=== PATIENT | female | born 1935 | race Caucasian/White ===

== ENCOUNTER 2020-04-14 15:57 | Emergency (ER) | payer MEDICARE ==
[~2020-04-14] VITALS: Ht 165.1 cm; Wt 74.8 kg
[2020-04-14 15:57] VITALS: BP 168/74
--- NOTE | 2020-04-14 15:57 | NUR ---
ED Nurse Note: Pt MOHAN LANDERS from the street c/o S/P fall today x couple minutes ago. Per pt, she went out for a walk and had a trip and fall, and she landed on her face. Noted with multiple laceration on the forehead and nose. Denies LOC/ KO. Pt AAOX4, verbally responsive. No SOB, on room air.
--- NOTE | 2020-04-14 15:58 | NUR ---
ED Nurse Note: Pt is also c/o right knee pain.
--- NOTE | 2020-04-14 16:22 | NUR ---
ED Nurse Note: IV line established. blood specimen collected and sent to lab.
--- NOTE | 2020-04-14 16:35 | NUR ---
ED Nurse Note: Pt taken to CT via francesca by a irma.
--- NOTE | 2020-04-14 16:48 | NUR ---
ED Nurse Note: Pt returned from CT, not in any distress.
[2020-04-14 17:01] LABS: APPEARANCE,URINE CLEAR; BILIRUBIN, URINE NEGATIVE (NEGATIVE); COLOR,URINE PALE YELLOW; GLUCOSE, URINE (UA) NEGATIVE (NEGATIVE); KETONES,URINE NEGATIVE (NEGATIVE); LEUKOCYTE ESTERASE ,URINE 2+ (NEGATIVE); NITRITE,URINE NEGATIVE (NEGATIVE); PH,URINE 9 (4.5-8.0); PROTEIN,URINE NEGATIVE (NEGATIVE); UROBILINOGEN,URINE NORMAL MG/DL (0.0-1.0)
--- NOTE | 2020-04-14 17:13 | Diagnostic Imaging Report ---
EXAM: CT Head Without Intravenous Contrast CLINICAL HISTORY: TRAUMA TECHNIQUE: Axial computed tomography images of the head/brain without intravenous contrast. CTDI is 20.2 mGy and DLP is 386.7 mGy-cm. One or more of the following dose reduction techniques were used: automated exposure control, adjustment of the mA and/or kV according to patient size, use of iterative reconstruction technique. COMPARISON: No relevant prior studies available. FINDINGS: Brain: No acute intracranial hemorrhage or cortical ischemia. Chronic small vessel ischemic changes. Ventricles: Unremarkable. Bones/joints: Unremarkable. No acute fracture. Soft tissues: Unremarkable. Sinuses: Unremarkable as visualized. Mastoid air cells: Unremarkable as visualized. IMPRESSION: No acute intracranial hemorrhage or skull fracture.
[2020-04-14 17:14] LABS: BASOPHILS % (AUTO) 1.2 % (0.0-2.0); EOSINOPHILS % (AUTO) 1.2 % (0.0-3.0); HEMOGLOBIN 15.2 G/DL (12.0-16.0); LYMPHOCYTES % (AUTO) 32.5 % (20.0-45.0); MEAN CORPUSCULAR VOLUME 91 FL (80-99); MONOCYTES % (AUTO) 7.5 % (1.0-10.0); NEUTROPHILS % (AUTO) 57.6 % (45.0-75.0); PLATELET COUNT 206 K/UL (150-450); RED BLOOD COUNT 4.95 M/UL (4.20-5.40); RED CELL DISTRIBUTION WIDTH 12.3 % (11.6-14.8)
--- NOTE | 2020-04-14 17:14 | Diagnostic Imaging Report ---
EXAM: CT Maxillofacial Without Intravenous Contrast CLINICAL HISTORY: TRAUMA TECHNIQUE: Axial computed tomography images of the face without intravenous contrast. CTDI is 20.2 mGy and DLP is 386.7 mGy-cm. One or more of the following dose reduction techniques were used: automated exposure control, adjustment of the mA and/or kV according to patient size, use of iterative reconstruction technique. COMPARISON: No relevant prior studies available. FINDINGS: Bones/joints: No acute fracture. Soft tissues: Unremarkable. Orbits: Unremarkable. Sinuses: Unremarkable. IMPRESSION: No acute fracture.
--- NOTE | 2020-04-14 17:15 | Diagnostic Imaging Report ---
EXAM: CT Cervical Spine Without Intravenous Contrast CLINICAL HISTORY: TRAUMA TECHNIQUE: Axial computed tomography images of the cervical spine without intravenous contrast. CTDI is 20.2 mGy and DLP is 386.7 mGy-cm. One or more of the following dose reduction techniques were used: automated exposure control, adjustment of the mA and/or kV according to patient size, use of iterative reconstruction technique. COMPARISON: No relevant prior studies available. FINDINGS: Vertebrae: No acute fracture or subluxation. Discs/spinal canal/neural foramina: Multilevel degenerative changes. Soft tissues: Unremarkable. IMPRESSION: No acute fracture or subluxation.
[2020-04-14 17:25] LABS: ALANINE AMINOTRANSFERASE 21 U/L (12-78); ALBUMIN 3.6 G/DL (3.4-5.0); ALBUMIN/GLOBULIN RATIO 1.2 (1.0-2.7); ALKALINE PHOSPHATASE 73 U/L (46-116); ASPARTATE AMINO TRANSFERASE 17 U/L (15-37); BILIRUBIN,TOTAL 0.5 MG/DL (0.2-1.0); BLOOD UREA NITROGEN 20 mg/dL (7-18); CALCIUM 9.3 MG/DL (8.5-10.1); CARBON DIOXIDE 31 MMOL/L (21-32); CREATININE 1.1 MG/DL (0.55-1.30)
[2020-04-14 17:31] LABS: CHLORIDE 102 MMOL/L (98-107); POTASSIUM 3.8 MMOL/L (3.5-5.1); SODIUM 139 MMOL/L (136-145)
--- NOTE | 2020-04-14 18:50 | NUR ---
ED Nurse Note: Xray at bedside.
[2020-04-14] MEDS ORDERED: Tetanus/Diptheria/Pertussis IM ONE (19:45)
--- NOTE | 2020-04-14 19:58 | Emergency Room Report ---
History of Present Illness General Chief Complaint: Multiple Trauma/Fall Source: Patient Present Illness HPI Patient states she was out walking today when she tripped and fell. She states it surprised her and she fell and hit her face and her left knee on the ground. She denies being on any anticoagulation. She denies headache or neck pain. She denies nausea or vomiting. She denies blurry vision. She denies weakness. She denies tingling or numbness. She denies chest pain. She denies shortness of breath or abdominal pain. She has no other complaints. Allergies: Coded Allergies: No Known Allergies (Unverified , 04/14/20) COVID-19 Screening Contact w/high risk pt: No Experienced COVID-19 symptoms?: No COVID-19 Testing performed LANDSCAPING SPECIALIST: No Patient History Past Medical History: see triage record, DM, HTN, other - HLP Social History: Denies: smoking, alcohol use, drug use Reviewed Nursing Documentation: PMH: Agreed; PSxH: Agreed Review of Systems All Other Systems: negative except mentioned in HPI Physical Exam Vital Signs Date Time Temp Pulse Resp B/P (MAP) Pulse Ox O2 Delivery O2 Flow Rate FiO2 04/14/20 15:51 98.2 84 16 168/74 (105) 99 Room Air Sp02 EP Interpretation: reviewed, normal General Appearance: no apparent distress, alert, GCS 15, non-toxic Head: normocephalic, other - 2 x 1cm hairline lacerations on mid forehead. Abrasion with partial skin avulsion over bridge of nose. Eyes: bilateral eye normal inspection, bilateral eye PERRL ENT: hearing grossly normal, normal pharynx, no angioedema, normal voice Neck: normal inspection, full range of motion, supple/symm/no masses Respiratory: chest non-tender, lungs clear, normal breath sounds, no respiratory distress, no retraction, no accessory muscle use, speaking full sentences Cardiovascular #1: regular rate, rhythm, no edema Gastrointestinal: non tender, soft, non-distended, no guarding, no rebound Rectal: deferred Musculoskeletal: back normal, normal range of motion, gait/station normal, tender - +ecchymosis and TTP over anterior L. knee. FROM. No joint effusion. Joint stable. Neurologic: alert, motor strength/tone normal, oriented x3, sensory intact, responsive, speech normal Psychiatric: judgement/insight normal, memory normal, mood/affect normal, no suicidal/homicidal ideation Skin: other - See above in head exam Medical Decision Making Diagnostic Impression: Primary Impression: Closed head injury Additional Impressions: Face lacerations Knee contusion Fall ER Course Patient suffered a mechanical fall. Given her age, I did obtain a CT of the head, facial bones and C-spine. The patient is high risk for an occult injury in these regions. These were all negative for acute fracture or intracranial bleed. The patient also has a contusion on her left knee. X-ray of the knee showed no acute fracture. Patient's patellar tendon is intact and there is no joint effusion. Patient is able to ambulate without difficulty. Overall, the patient's evaluation was benign. The patient lives nearby and is able to take a taxi home tonight. No emergency medical condition was identified. The patient is given close return precautions and follow-up instructions. Laboratory Tests Test 04/14/20 16:22 04/14/20 16:32 White Blood Count 7.0 K/UL (4.8-10.8) Red Blood Count 4.95 M/UL (4.20-5.40) Hemoglobin 15.2 G/DL (12.0-16.0) Hematocrit 45.0 % (37.0-47.0) Mean Corpuscular Volume 91 FL (80-99) Mean Corpuscular Hemoglobin 30.6 PG (27.0-31.0) Mean Corpuscular Hemoglobin Concent 33.7 G/DL (32.0-36.0) Red Cell Distribution Width 12.3 % (11.6-14.8) Platelet Count 206 K/UL (150-450) Mean Platelet Volume 6.7 FL (6.5-10.1) Neutrophils (%) (Auto) 57.6 % (45.0-75.0) Lymphocytes (%) (Auto) 32.5 % (20.0-45.0) Monocytes (%) (Auto) 7.5 % (1.0-10.0) Eosinophils (%) (Auto) 1.2 % (0.0-3.0) Basophils (%) (Auto) 1.2 % (0.0-2.0) Prothrombin Time 10.9 SEC (9.30-11.50) Prothrombin Time INR 1.0 (0.9-1.1) Activated Partial Thromboplast Time 27 SEC (23-33) Sodium Level 139 MMOL/L (136-145) Potassium Level 3.8 MMOL/L (3.5-5.1) Chloride Level 102 MMOL/L (98-107) Carbon Dioxide Level 31 MMOL/L (21-32) Blood Urea Nitrogen 20 mg/dL (7-18) H Creatinine 1.1 MG/DL (0.55-1.30) Estimated Glomerular Filtration Rate 47.1 mL/min (>60) Glucose Level 116 MG/DL (74-106) H Calcium Level 9.3 MG/DL (8.5-10.1) Total Bilirubin 0.5 MG/DL (0.2-1.0) Aspartate Amino Transferase (AST) 17 U/L (15-37) Alanine Aminotransferase (ALT) 21 U/L (12-78) Alkaline Phosphatase 73 U/L (46-116) Total Protein 6.7 G/DL (6.4-8.2) Albumin 3.6 G/DL (3.4-5.0) Globulin 3.1 g/dL Albumin/Globulin Ratio 1.2 (1.0-2.7) Thyroid Stimulating Hormone (TSH) 2.685 uiU/mL (0.358-3.740) Free Thyroxine 0.92 NG/DL (0.76-1.46) Serum Alcohol < 3 mg/dL Urine Color Pale yellow Urine Appearance Clear Urine pH 9 (4.5-8.0) Urine Specific [place] 1.015 (1.005-1.035) Urine Protein Negative (NEGATIVE) Urine Glucose (UA) Negative (NEGATIVE) Urine Ketones Negative (NEGATIVE) Urine Blood Negative (NEGATIVE) Urine Nitrite Negative (NEGATIVE) Urine Bilirubin Negative (NEGATIVE) Urine Urobilinogen Normal MG/DL (0.0-1.0) Urine Leukocyte Esterase 2+ (NEGATIVE) H Urine RBC 0-2 /HPF (0 - 2) Urine WBC 0-2 /HPF (0 - 2) Urine Squamous Epithelial Cells Occasional /LPF Urine Bacteria Few /HPF (NONE) Urine Opiates Screen Negative (NEGATIVE) Urine Barbiturates Screen Negative (NEGATIVE) Phencyclidine (PCP) Screen Negative (NEGATIVE) Urine Amphetamines Screen Negative (NEGATIVE) Urine Benzodiazepines Screen Negative (NEGATIVE) Urine Cocaine Screen Negative (NEGATIVE) Urine Marijuana (THC) Screen Negative (NEGATIVE) CT/MRI/US Diagnostic Results CT/MRI/US Diagnostic Results : Imaging Test Ordered: CT head, C-spine and facial bones Impression CT head: No acute findings. Specifically no intracranial bleed, mass effect or edema. See official report. CT facial bones and CT C-spine. No acute findings or fracture. See official report in electronic medical record. Last Vital Signs Date Time Temp Pulse Resp B/P (MAP) Pulse Ox O2 Delivery O2 Flow Rate FiO2 04/14/20 15:57 98.2 84 16 168/74 99 Room Air Status: improved Disposition: HOME, SELF-CARE Condition: Improved Referrals: NOT CHOSEN IPA/,REFERRING (PCP) Annemarie Wilhelm DO Apr 14, 2020 19:58
[2020-04-14 20:15] VITALS: BP 145/72
--- NOTE | 2020-04-14 20:15 | NUR ---
ED Nurse Note: Pt cleared by ERMD for discharge. DC instructions was given and explained to pt and verbalized understanding of teachings. All medical deviecs such as ID band and IV line removed. Pt is AAO x4, ambulatory and left with all personal belongings. P/u by taxi.
--- NOTE | 2020-04-15 13:38 | Diagnostic Imaging Report ---
INDICATION: Pain. TECHNIQUE: XRAY Knee 3v LT frontal, oblique, and lateral views of the left knee COMPARISON: None FINDINGS: Status post total left knee orthoplasty without evidence of hardware-related convocation. No significant knee joint effusion. No acute fracture or dislocation. No acute soft tissue abnormality. Vascular calcification is noted. IMPRESSION: No acute fracture or dislocation.
== END 2020-04-14 20:15 | disposition home or self-care (01) ==
LOC: EDBD 15:57 → EMR 16:25
DX: S01.81XA Laceration without foreign body of other part of head, initial encounter (principal); S09.90XA Unspecified injury of head, initial encounter; S80.02XA Contusion of left knee, initial encounter; W01.0XXA Fall on same level from slipping, tripping and stumbling without subsequent striking against object, initial encounter; Y92.9 Unspecified place or not applicable; E11.9 Type 2 diabetes mellitus without complications; I10 Essential (primary) hypertension; E78.5 Hyperlipidemia, unspecified; Z23 Encounter for immunization
CPT/HCPCS: 36415; 70450; 70486; 72125; 73562; 80053; 80307; 81003; 84439; 84443; 85025; 85610; 85730; 90471; 90715; 99284; G0480

== ENCOUNTER 2020-08-03 16:43 | Inpatient (IN) | payer MEDICARE ==
[~2020-08-03] VITALS: Ht 157.5 cm; Wt 73.5 kg
[2020-08-03 17:00] VITALS: BP 215/95
--- NOTE | 2020-08-03 17:00 | NUR ---
Nurses note: Emily, oriented by 4 stable at this time, report she was walking to see a contraction near her home and fall, report LOC. Denies any pain at this time,pain at the touch in her occipital part of the head. Big bump in her head, also refers nausea. pt conected to the monitor, V/S stable at this time. will continue monitoring for any change in condition.
--- NOTE | 2020-08-03 17:36 | Emergency Room Report ---
History of Present Illness General Chief Complaint: Multiple Trauma/Fall Source: Patient Present Illness HPI Disclaimer: Please note that this report is being documented using DRAGON technology. This can lead to erroneous entry secondary to incorrect interpretation by the dictating instrument. HPI: 84-year-old female with history of hypertension presents after a fall. The patient was walking down the street when she suddenly lost consciousness after turning her head to look up at a building. She fell on the left side complaining of left hip pain and a bump over the left side of the scalp. Denies bleeding. Cannot recall preceding events. Denied any palpitations, shortness of breath, chest pain, dizziness. He has no recollection of the events immediately before or after her fall. She now feels well aside from pain over the occiput and over the left hip. Denies chest pain, palpitations, shortness of breath, pain in the extremities otherwise. Does not take anticoagulants. No prior history of syncope. Has been eating and drinking at baseline. No recent changes in her health noted. PMH: Hypertension PSH: Bilateral hip replacement, total Allergies: Reviewed Social Hx: Reviewed Allergies: Coded Allergies: No Known Allergies (Unverified , 04/14/20) COVID-19 Screening Contact w/high risk pt: No Experienced COVID-19 symptoms?: No COVID-19 Testing performed EMPLOYMENT EDUCATIONAL COORD: No Nursing Documentation-PMH Past Medical History: No History, Except For Hx Hypertension: Yes Hx Diabetes: Yes Review of Systems All Other Systems: negative except mentioned in HPI Physical Exam Vital Signs Date Time Temp Pulse Resp B/P (MAP) Pulse Ox O2 Delivery O2 Flow Rate FiO2 08/03/20 16:48 97.9 73 17 215/95 (135) 93 Room Air General: Awake and alert, no acute distress HEENT: NC/AT. Hematoma over the left occiput region. EOMI. PERRLA. No nystagmus. No oral lacerations. Cardiovascular: RRR. S1 and S2 normal. No murmur appreciated Resp: Normal work of breathing. No cough, wheezing or crackles appreciated Abdomen: Abdomen is soft, nondistended. Nontender Skin: Intact. No abrasions, laceration or rash over the exposed skin MSK: Normal tone and bulk. Moving all extremities. No obvious deformity. Tenderness with compression over the left pelvis. Neuro: Awake and alert. Mentating appropriately. Medical Decision Making Diagnostic Impression: Primary Impression: Closed head injury Qualified Codes: S09.90XA - Unspecified injury of head, initial encounter Additional Impressions: Syncope Qualified Codes: R55 - Syncope and collapse Contusion, hip Qualified Codes: S70.02XA - Contusion of left hip, initial encounter Scalp hematoma Qualified Codes: S00.03XA - Contusion of scalp, initial encounter ER Course 84-year-old female presents after a suspected syncopal episode with fall. Concern for new cranial injury, left hip injury, ACS, arrhythmia, syncope, seizure activity among others. She arrives awake and alert with GCS 15 mentating appropriately. EKG is nonischemic and largely unremarkable. Chest x-ray shows normal cardiac silhouette. X-ray of the hips and pelvis shows intact hardware no obvious fracture dislocation. Patient is ambulatory to the restroom. CT scan of the head unremarkable for acute injury. Unclear as to whether the patient had a seizure or syncopized today. Will admit for further work-up. Dr. Huerta is admitting panel physician today. Laboratory Tests Test 08/03/20 17:03 08/03/20 17:08 White Blood Count 7.4 K/UL (4.8-10.8) Red Blood Count 4.90 M/UL (4.20-5.40) Hemoglobin 15.4 G/DL (12.0-16.0) Hematocrit 46.8 % (37.0-47.0) Mean Corpuscular Volume 96 FL (80-99) Mean Corpuscular Hemoglobin 31.4 PG (27.0-31.0) H Mean Corpuscular Hemoglobin Concent 32.9 G/DL (32.0-36.0) Red Cell Distribution Width 13.0 % (11.6-14.8) Platelet Count 181 K/UL (150-450) Mean Platelet Volume 8.5 FL (6.5-10.1) Neutrophils (%) (Auto) 65.7 % (45.0-75.0) Lymphocytes (%) (Auto) 25.0 % (20.0-45.0) Monocytes (%) (Auto) 7.3 % (1.0-10.0) Eosinophils (%) (Auto) 1.0 % (0.0-3.0) Basophils (%) (Auto) 1.0 % (0.0-2.0) Sodium Level 140 MMOL/L (136-145) Potassium Level 3.7 MMOL/L (3.5-5.1) Chloride Level 103 MMOL/L (98-107) Carbon Dioxide Level 29 MMOL/L (21-32) Anion Gap 8 mmol/L (5-15) Blood Urea Nitrogen 16 mg/dL (7-18) Creatinine 1.0 MG/DL (0.55-1.30) Estimated Glomerular Filtration Rate 52.5 mL/min (>60) Glucose Level 115 MG/DL (74-106) H Calcium Level 9.2 MG/DL (8.5-10.1) Total Bilirubin 0.6 MG/DL (0.2-1.0) Aspartate Amino Transferase (AST) 21 U/L (15-37) Alanine Aminotransferase (ALT) 15 U/L (12-78) Alkaline Phosphatase 83 U/L (46-116) Troponin I 0.001 ng/mL (0.000-0.056) Total Protein 7.4 G/DL (6.4-8.2) Albumin 3.8 G/DL (3.4-5.0) Globulin 3.6 g/dL Albumin/Globulin Ratio 1.1 (1.0-2.7) EKG Diagnostic Results Troponin ordered: Yes When was troponin ordered?: Aug 03, 2020 EKG Time: 17:04 Rate: normal Rhythm: NSR ST Segments: no acute changes Other Impression Sinus rhythm, normal axis, normal intervals, no ST segment changes. Rhythm Strip Diag. Results Rhythm Strip Time: 17:04 EP Interpretation: yes Rate: 70s Rhythm: NSR, no PVC's, no ectopy Chest X-Ray Diagnostic Results Chest X-Ray Diagnostic Results : Chest X-Ray Ordered: Yes # of Views/Limited/Complete: 1 View Indication: Other - Loss of consciousness EP Interpretation: Yes Interpretation: no consolidation, no effusion, no pneumothorax, no acute cardiopulmonary disease Impression: No acute disease Electronically Signed by: Electronically signed by Dr. Rico Monreal MD Other X-Ray Diagnostic Results Other X-Ray Diagnostic Results : X-Ray ordered: Hips and pelvis # of Views/Limited Vs Complete: Complete Indication: Pain EP Interpretation: Yes Interpretation: no dislocation, no soft tissue swelling, no fractures, other - Hardware appears in place Impression: No acute disease Last Vital Signs Date Time Temp Pulse Resp B/P (MAP) Pulse Ox O2 Delivery O2 Flow Rate FiO2 08/03/20 17:00 73 17 Room Air 08/03/20 17:00 97.9 215/95 93 Disposition: ADMITTED INPATIENT Condition: Serious Scripts Unable to Obtain Active Prescriptions or Reported Meds Referrals: NOT CHOSEN IPA/,REFERRING (PCP) Rico Monreal MD Aug 03, 2020 17:36
[2020-08-03 17:47] LABS: HEMATOCRIT 46.8 % (37.0-47.0); HEMOGLOBIN 15.4 G/DL (12.0-16.0); MEAN CORPUSCULAR VOLUME 96 FL (80-99); MONOCYTES % (AUTO) 7.3 % (1.0-10.0); NEUTROPHILS % (AUTO) 65.7 % (45.0-75.0); PLATELET COUNT 181 K/UL (150-450); WHITE BLOOD COUNT 7.4 K/UL (4.8-10.8)
--- NOTE | 2020-08-03 17:49 | Diagnostic Imaging Report ---
EXAM: CT Head Without Intravenous Contrast CLINICAL HISTORY: INJ TECHNIQUE: Axial computed tomography images of the head/brain without intravenous contrast. CTDI is 53.4 mGy and DLP is 992.1 mGy-cm. One or more of the following dose reduction techniques were used: automated exposure control, adjustment of the mA and/or kV according to patient size, use of iterative reconstruction technique. COMPARISON: No relevant prior studies available. FINDINGS: Brain: No acute intracranial hemorrhage or cortical ischemia. Chronic small vessel ischemic changes. Cannot exclude clpvs-co-cuaotld ischemia on CT. Followup as clinically indicated. Ventricles: Unremarkable. Bones/joints: Unremarkable. No acute fracture. Soft tissues: Left scalp hematoma. Sinuses: Unremarkable as visualized. Mastoid air cells: Unremarkable as visualized. IMPRESSION: No acute intracranial hemorrhage or skull fracture.
[2020-08-03 17:51] LABS: CALCIUM 9.2 MG/DL (8.5-10.1); POTASSIUM 3.7 MMOL/L (3.5-5.1)
[2020-08-03 17:55] LABS: ALBUMIN 3.8 G/DL (3.4-5.0); ALBUMIN/GLOBULIN RATIO 1.1 (1.0-2.7); BILIRUBIN,TOTAL 0.6 MG/DL (0.2-1.0)
[2020-08-03 18:43] VITALS: BP 168/89
--- NOTE | 2020-08-03 19:20 | NUR ---
Nurses note: Call and give report to Brittany BAKER
--- NOTE | 2020-08-03 19:30 | NUR ---
TRANSFER TO FLOOR: Patient transferred to 209 as ordered, per Olivia. Report given to Cynthia BAKER, by Yesenia SANTO RN. Belongings transferred with pt. Patient left unit accompanied by charge nurse and HUMAN SERVICES SUPERVISOR, via serena ma.
--- NOTE | 2020-08-03 19:40 | NUR ---
TRANSFER TO FLOOR: Patient transferred to 209 as ordered, per Dr. Monreal. Report given to SAMUEL Marie by ER nurse SAMUEL Patterson. Belongings and are with patient at time of tranfer. Patient left floor via [place], accompanied by nurse in charge and VOLCANOLOGY TEACHER.
[2020-08-03 20:05] VITALS: BP 217/86
--- NOTE | 2020-08-03 20:07 | NUR ---
NURSE NOTES: Patient admitted to Telemetry from ED. ANO x4. On room air - O2 is 96%. assembler trim on - sinus rhythm. Patient can ambulate with assist. Instructed to call for assist before getting out fo bed - verbalized understanding. S/P fall - bump on the left side of her skull. Denies pain or nausea at this time. Skin is intact. IV located on the R AC 20g. Belongings checked with patient. Bed locked and in lowest position. Bed alarm on. Call light in reach. Patient's BP 217/86 - Left message for Dr. Huerta making him aware, and for admission orders Will follow plan of care.
[2020-08-03] MEDS ORDERED: Acetaminophen 500mg (ES) tab ORAL PRN (20:45)
--- NOTE | 2020-08-03 20:51 | NUR ---
NURSE NOTES: Admission orders received from Dr. Huerta; Orders received from Dr. Ellison regarding evelated BP. Will carry out all orders.
[2020-08-03] MEDS ORDERED: cloNIDine 0.2mg Tab ORAL PRN (21:00)
[2020-08-03 21:45] VITALS: BP 149/55
--- NOTE | 2020-08-03 22:00 | NUR ---
NURSE NOTES: Hydralazine 20mg IV given by telephone operators supervisor. BP 149/55 upon recheck. Will continue to monitor.
--- NOTE | 2020-08-03 22:05 | NUR ---
NURSE NOTES: Patient noted to be tachycardic at 113 bpm when repositioning herself upwards in the bed. Patient returned back to normal sinus rhythm once settled. Rhythm strip in the chart. Will continue to monitor.
[2020-08-04] VITALS (7 sets, daily range): BP systolic 133–191; BP diastolic 50–87
--- NOTE | 2020-08-04 06:07 | NUR ---
NURSE HAND-OFF REPORT: Important Events on Shift:Admission to Tele; Elevated BP. Fall risk Patient Status: Stable Diet: Low Na soft Pending Orders: N/A Pending Results/Labs:CBC, CMP Pending MD notification: N/A Latest Vital Signs: Temperature 97.0 , Pulse 73 , B/P 159 /58 , Respiratory Rate 18 , O2 SAT 98 , Room Air, O2 Flow Rate . Vital Sign Comment: [] EKG Rhythm: Sinus Rhythm Rhythm change?: N MD Notified?: - MD Response: Latest Acevedo Fall Score: 85 Fall Risk: High Risk Safety Measures: Call light Within Reach, Bed Alarm Zone 1, Side Rails Side Rails x2, Bed position Low and Locked. Fall Precautions: Yellow Socks Yellow Gown Door Sign Patient Fall Education
--- NOTE | 2020-08-04 06:27 | NUR ---
CASE MANAGEMENT:REVIEW 84 YR OLD FEMALE FROM HOME TO ER CC: S/P FALL TODAY WITH BUMP ON BACK OF HEAD AND LT HIP PAIN SI: SYNCOPE. CLOSED HEAD INJURY HIP CONTUSION. SCALP HEMATOMA 97.9 73 17 215/95 93% ON RA GLUCOSE+115 IS: CT HEAD XRAY LT HIP/PELVIS CHEST XRAY : TO TELEMETRY DCP: FROM HOME PLAN: HOME HEALTH UPON DISCHARGE ~ PER DAUGHTERS REQUEST HOME SAFETY EVAL PT EVAL NEURO CHECKS Q4HRS PER PROTOCOL CONSULT: NEURO, CARDIO AND NEPHRO
[2020-08-04 06:53] LABS: BASOPHILS % (AUTO) 0.8 % (0.0-2.0); HEMOGLOBIN 14.7 G/DL (12.0-16.0); LYMPHOCYTES % (AUTO) 34.8 % (20.0-45.0); MEAN CORPUSCULAR VOLUME 93 FL (80-99); MONOCYTES % (AUTO) 8.7 % (1.0-10.0); NEUTROPHILS % (AUTO) 54.6 % (45.0-75.0); PLATELET COUNT 189 K/UL (150-450); RED BLOOD COUNT 4.83 M/UL (4.20-5.40); RED CELL DISTRIBUTION WIDTH 12.6 % (11.6-14.8); WHITE BLOOD COUNT 6.2 K/UL (4.8-10.8)
[2020-08-04 07:10] LABS: ALBUMIN 3.3 G/DL (3.4-5.0); ALBUMIN/GLOBULIN RATIO 1.1 (1.0-2.7); BILIRUBIN,TOTAL 0.5 MG/DL (0.2-1.0); CALCIUM 8.7 MG/DL (8.5-10.1); POTASSIUM 3.1 MMOL/L (3.5-5.1)
--- NOTE | 2020-08-04 07:44 | NUR ---
NURSE NOTES: Report received from Cynthia BAKER. Patient seen on rounds, awake and eating breakfast, not in pain or distress. No c/o chest pain or dizziness. PIV on left AC patent and intact. Bed low and locked, siderails up x2, call light placed within reach and instructed to call nurse for assistance. Will continue to monitor.
--- NOTE | 2020-08-04 10:00 | NUR ---
PT EVALUATION NOTE Patient seen for initial evaluation and treatment initiated. Patient presents with LE weakness and decreased balance which impairs patient's ability to perform mobility tasks safely. Patient able to complete bed mobility with SBA, transfers with SBA and FWW for improved stability. Patient able to ambulate 100 ft with SBA and FWW for gait stability. Patient will benefit from skilled inpatient PT intervention to increase LE strength and postural stability for improved level of functional mobility and safety. Recommend discharge home with home PT and home safety evaluation once medically cleared by MD. Recommend ambulation with FWW/rollator (patient has rollator at home). Addendum: 08/04/20 at 1251 by ADI RAMIRES PT Amended: Links added.
[2020-08-04 11:11] LABS: APPEARANCE,URINE CLEAR; BILIRUBIN, URINE NEGATIVE (NEGATIVE); COLOR,URINE PALE YELLOW; GLUCOSE, URINE (UA) NEGATIVE (NEGATIVE); KETONES,URINE NEGATIVE (NEGATIVE); LEUKOCYTE ESTERASE ,URINE 1+ (NEGATIVE); NITRITE,URINE NEGATIVE (NEGATIVE); PH,URINE 6.5 (4.5-8.0); PROTEIN,URINE NEGATIVE (NEGATIVE); UROBILINOGEN,URINE NORMAL MG/DL (0.0-1.0)
--- NOTE | 2020-08-04 11:26 | Consultation ---
Consult Note Consult Note I am asked to evaluate the patient at the request of Dr. Whitfield for blood pressure out of control and fluid and electrolyte management Chief Complaint: Multiple Trauma/Fall HPI: 84-year-old female with history of hypertension presents after a fall. The patient was walking down the street when she suddenly lost consciousness after turning her head to look up at a building. She fell on the left side complaining of left hip pain and a bump over the left side of the scalp. Denies bleeding. Cannot recall preceding events. Denied any palpitations, shortness of breath, chest pain, dizziness. He has no recollection of the events immediately before or after her fall. She now feels well aside from pain over the occiput and over the left hip. Denies chest pain, palpitations, shortness of breath, pain in the extremities otherwise. Does not take anticoagulants. No prior history of syncope. Has been eating and drinking at baseline. No recent changes in her health noted. PMH: Hypertension PSH: Bilateral hip replacement, total Allergies: No Known Allergies (Unverified , 04/14/20) COVID-19 Screening Contact w/high risk pt: No Experienced COVID-19 symptoms?: No COVID-19 Testing performed PRECISION PRINTING WORKER: No Past Medical History: No History, Except For Hx Hypertension: Yes Hx Diabetes: Yes Vital Signs Date Time Temp Pulse Resp B/P (MAP) Pulse Ox O2 Delivery O2 Flow Rate FiO2 08/03/20 16:48 97.9 73 17 215/95 (135) 93 Room Air PHYSICAL EXAMINATION: VITAL SIGNS: Blood pressure is 175/77, pulse 69, respirations 18, she is afebrile. HEAD AND NECK: Showed no JVD. LUNGS: Clear. CARDIOVASCULAR: Shows regular S1 and S2 with no gallop or murmur. ABDOMEN: Soft. EXTREMITIES: No pitting edema. LABORATORY AND DIAGNOSTIC DATA: Labs show white count of 6.2, hemoglobin of 14.7, hematocrit of 45, and platelet count is 189. Sodium of 141, potassium 3.1, BUN of 30, creatinine of 1, and glucose of 140. First troponin is negative. The CT of the brain was unremarkable. . Assessment/Plan Hypertension [id number] History of diabetes mellitus Syncope Closed head injury, scalp hematoma, hip contusion Low magnesium, low potassium Patient started on Norvasc for blood pressure We will add Cozaar for blood pressure As needed hydralazine for high blood pressure Monitor renal parameters and electrolytes Magnesium supplement IV, p.o. potassium chloride Per orders Tom Oliveira MD Aug 04, 2020 11:26
[2020-08-04] MEDS ORDERED: Losartan 25mg tab ORAL SCH (11:30)
--- NOTE | 2020-08-04 12:13 | NUR ---
HIGH LEAD YARDER NOTE SW met w pt and evaluated home safety. PT presents as A&O4x and cooperative. PT resides alone at [address] [facility] [id number], [place] [address]. PT reports she has a walker but she hardly used DME. PT has hx of two major fall within 6 months. PT reports she was standing, lost the balance of her body and fell outside of her apartment. Pt reports she never fell inside her apartment. PT does not have a caregiver. Pt reports she is independent w/ ALDs and IADLs. Pt's apartment is located on the first floor and there are a few stairs to enter the building. PT reports she will request the apartment management if they could install extra grab bar in her bathroom. PT does not have any social services assistant concern/needs at this time. Home health may be helpful when pt returns home. PT to evaluate pt's mobility. Emergency contact: Fab Bruce (child) [phone]
--- NOTE | 2020-08-04 13:59 | Consultation ---
Consult Note Consult Note NEUROLOGY CONSULTATION DATE OF CONSULTATION: 08/04/2020 MOS[place] MD: Dr Huerta REASON FOR REFERRAL: Fall, Syncope HPI: This is a pleasant 84 year od female patient who was brought in by her neighbors after she experienced a fall on the sidewalk near her apartment. Her last fall was last year when she was walking on the sidewalk and she fell onto her face. She states she has no history of seizures or dizziness. She has Diabetes, hypertension. Her son helps her with her home medications she does not know what her medications are. She remembers the incident and denies losing cons ciousness during fall. She remembers she hit her head and [place] [facility] [place] Head which revealed no bleeding, but a small hematoma. She denies dizziness, headache. We were consulted for fall and syncope. Past Medical History: DM, Hypertension Past Surgical History: Hip replacement Allergies: NKDA Social History: Lives alone has son who helps her at home, denies smoking tobacco, no drinking alcohol and no drug use. ROS A 14 point system was done PE General: pt is laying in bed no distress AXO X4 Neuro: Awake, Alert and Oriented, has insight to situation language is intact Comprehension intact. Cranial nerves II-XII tested, tongue is midline. PERRLA Hearing intact. Motor Exam: Upper and lower bilateral extremities are 4/5 no involuntary movements Sensation intact bilateral in extremities Gait is steady with walker Scalp: small bump on left lateral skull LABS: Reviewed MEDS: Reviewed IMAGING: Brain: No acute intracranial hemorrhage or cortical ischemia. Chronic small vessel ischemic changes. Cannot exclude [id number] ischemia on CT. Followup as clinically indicated. Ventricles: Unremarkable. Bones/joints: Unremarkable. No acute fracture. Soft tissues: Left scalp hematoma. Sinuses: Unremarkable as visualized. Mastoid air cells: Unremarkable as visualized. IMPRESSION: No acute intracranial hemorrhage or skull fracture. ASSESSMENT AND REC'S: 1. Fall --> unknown etiology at this time --> CT Head is negative --> History of fall last fall last year --> order PT eval to assess balance and coordination 2. Questionable Syncope --> 12 lead ekg NSR, EP on board 2. DM --> acu checks 3. HTN --> elevated upon arrival uncontrolled 4. Hypokalemia --> replete as needed 5. low magnesium --> replete Thank you for allowing us to participate in patient's care plan of care was discussed with Dr. Wai Carroll and he agrees. Sherita Dyson BEEF LUGGER Aug 04, 2020 13:59
--- NOTE | 2020-08-04 14:37 | Cardiac Electrophysiology PN ---
Subjective Subjective [id number] Objective Last 24 Hour Vital Signs Date Time Temp Pulse Resp B/P (MAP) Pulse Ox O2 Delivery O2 Flow Rate FiO2 08/04/20 12:42 175/77 08/04/20 09:00 Room Air 08/04/20 08:43 67 143/56 08/04/20 08:00 69 08/04/20 08:00 97.5 67 18 143/56 (85) 94 08/04/20 04:00 97.0 84 18 159/58 (91) 98 08/04/20 04:00 73 08/04/20 00:00 98.7 78 18 159/57 (91) 96 08/03/20 23:22 75 08/03/20 21:51 67 08/03/20 21:45 149/55 (86) 08/03/20 21:10 217/86 08/03/20 21:02 Room Air 08/03/20 20:05 97.0 70 18 217/86 (129) 96 08/03/20 19:21 98.0 79 17 186/92 97 Room Air 08/03/20 18:43 98.0 89 18 168/89 96 Room Air 08/03/20 17:00 73 17 Room Air 08/03/20 17:00 97.9 17 215/95 93 Room Air 08/03/20 16:48 97.9 73 17 215/95 (135) 93 Room Air Intake and Output 08/03/20 08/04/20 19:00 07:00 Intake Total 600 ml Balance 600 ml Intake Oral 600 ml # Voids 4 Laboratory Tests Test 08/03/20 17:03 08/03/20 17:08 08/04/20 05:28 08/04/20 10:44 White Blood Count 7.4 K/UL (4.8-10.8) 6.2 K/UL (4.8-10.8) Red Blood Count 4.90 M/UL (4.20-5.40) 4.83 M/UL (4.20-5.40) Hemoglobin 15.4 G/DL (12.0-16.0) 14.7 G/DL (12.0-16.0) Hematocrit 46.8 % (37.0-47.0) 45.0 % (37.0-47.0) Mean Corpuscular Volume 96 FL (80-99) 93 FL (80-99) Mean Corpuscular Hemoglobin 31.4 PG (27.0-31.0) H 30.5 PG (27.0-31.0) Mean Corpuscular Hemoglobin Concent 32.9 G/DL (32.0-36.0) 32.7 G/DL (32.0-36.0) Red Cell Distribution Width 13.0 % (11.6-14.8) 12.6 % (11.6-14.8) Platelet Count 181 K/UL (150-450) 189 K/UL (150-450) Mean Platelet Volume 8.5 FL (6.5-10.1) 7.6 FL (6.5-10.1) Neutrophils (%) (Auto) 65.7 % (45.0-75.0) 54.6 % (45.0-75.0) Lymphocytes (%) (Auto) 25.0 % (20.0-45.0) 34.8 % (20.0-45.0) Monocytes (%) (Auto) 7.3 % (1.0-10.0) 8.7 % (1.0-10.0) Eosinophils (%) (Auto) 1.0 % (0.0-3.0) 1.0 % (0.0-3.0) Basophils (%) (Auto) 1.0 % (0.0-2.0) 0.8 % (0.0-2.0) Sodium Level 140 MMOL/L (136-145) 141 MMOL/L (136-145) Potassium Level 3.7 MMOL/L (3.5-5.1) 3.1 MMOL/L (3.5-5.1) L Chloride Level 103 MMOL/L (98-107) 106 MMOL/L (98-107) Carbon Dioxide Level 29 MMOL/L (21-32) 27 MMOL/L (21-32) Anion Gap 8 mmol/L (5-15) 8 mmol/L (5-15) Blood Urea Nitrogen 16 mg/dL (7-18) 13 mg/dL (7-18) Creatinine 1.0 MG/DL (0.55-1.30) 1.0 MG/DL (0.55-1.30) Estimat Glomerular Filtration Rate 52.5 mL/min (>60) 52.5 mL/min (>60) Glucose Level 115 MG/DL (74-106) H 140 MG/DL (74-106) H Calcium Level 9.2 MG/DL (8.5-10.1) 8.7 MG/DL (8.5-10.1) Total Bilirubin 0.6 MG/DL (0.2-1.0) 0.5 MG/DL (0.2-1.0) Aspartate Amino Transf (AST/SGOT) 21 U/L (15-37) 17 U/L (15-37) Alanine Aminotransferase (ALT/SGPT) 15 U/L (12-78) 18 U/L (12-78) Alkaline Phosphatase 83 U/L (46-116) 58 U/L (46-116) Troponin I 0.001 ng/mL (0.000-0.056) Total Protein 7.4 G/DL (6.4-8.2) 6.3 G/DL (6.4-8.2) L Albumin 3.8 G/DL (3.4-5.0) 3.3 G/DL (3.4-5.0) L Globulin 3.6 g/dL 3.0 g/dL Albumin/Globulin Ratio 1.1 (1.0-2.7) 1.1 (1.0-2.7) Uric Acid 6.1 MG/DL (2.6-7.2) Phosphorus Level 3.0 MG/DL (2.5-4.9) Magnesium Level 1.6 MG/DL (1.8-2.4) L Urine Color Pale yellow Urine Appearance Clear Urine pH 6.5 (4.5-8.0) Urine Specific [place] 1.005 (1.005-1.035) Urine Protein Negative (NEGATIVE) Urine Glucose (UA) Negative (NEGATIVE) Urine Ketones Negative (NEGATIVE) Urine Blood Negative (NEGATIVE) Urine Nitrite Negative (NEGATIVE) Urine Bilirubin Negative (NEGATIVE) Urine Urobilinogen Normal MG/DL (0.0-1.0) Urine Leukocyte Esterase 1+ (NEGATIVE) H Urine RBC 0-2 /HPF (0 - 2) Urine WBC 0-2 /HPF (0 - 2) Urine Squamous Epithelial Cells Occasional /LPF Urine Bacteria Occasional /HPF (NONE) Carlos Ellison MD Aug 04, 2020 14:37
--- NOTE | 2020-08-04 15:14 | Consultation ---
DATE OF CONSULTATION: 08/04/2020 CARDIOLOGY CONSULTATION CONSULTING PHYSICIAN: Carlos Ellison MD REFERRING PHYSICIAN: Koko Huerta MD REASON FOR CONSULTATION: Syncope and accelerated hypertension. HISTORY OF PRESENT ILLNESS: Patient is a very pleasant 84-year-old lady with history of hypertension, presented to the emergency room after a fall. Patient was walking down the street when she suddenly lost consciousness after turning her head to look after her building. She fell on the left side complaining of left hip pain and a bump over the left side of the scalp. Patient had a similar episode about a year ago, but did not seek any medical attention. In the emergency room, blood pressure was 250/95 with a pulse of 73, respirations of 18. Patient is also diabetic. Cardiology consultation was obtained for further evaluation. REVIEW OF SYSTEMS: Negative other than what was mentioned in the history of present illness. PAST MEDICAL HISTORY: As mentioned above. FAMILY HISTORY: Noncontributory. SOCIAL HISTORY: Patient lives at home. Does not smoke or drink alcohol. PHYSICAL EXAMINATION: VITAL SIGNS: Blood pressure is 175/77, pulse 69, respirations 18, she is afebrile. HEAD AND NECK: Showed no JVD. LUNGS: Clear. CARDIOVASCULAR: Shows regular S1 and S2 with no gallop or murmur. ABDOMEN: Soft. EXTREMITIES: No pitting edema. LABORATORY AND DIAGNOSTIC DATA: Labs show white count of 6.2, hemoglobin of 14.7, hematocrit of 45, and platelet count is 189. Sodium of 141, potassium 3.1, BUN of 30, creatinine of 1, and glucose of 140. First troponin is negative. The CT of the brain was unremarkable. ASSESSMENT AND PLAN: 1. Recurrent syncopal episodes. This happened while the patient was not exerting herself. Could be sick sinus syndrome. Neuro evaluation is in progress. We will check a carotid duplex and orthostatic vital signs unlikely as the blood pressure was in 200 on arrival. We will also get an echocardiogram for further evaluation. 2. Accelerated hypertension. Patient is on losartan 25 mg b.i.d. as well as amlodipine 5 mg b.i.d. I will add p.r.n. hydralazine to her medical regimen. Thank you very much for allowing me to participate in the care of this patient. Please do not hesitate to contact me for any questions regarding my evaluation. Carlos Ellison M.D. DR: GILBERTO JOB#: [id number] CC:
--- NOTE | 2020-08-04 15:46 | Diagnostic Imaging Report ---
Indication: Pain, trauma Technique: One view the pelvis, 2 views of the left hip Comparison: none Findings: There is a right hip arthroplasty in the left hip hemiarthroplasty prosthesis in place. No evidence of hardware fracture. No evidence of bony fracture. No evidence of hardware loosening or infection. The soft tissues are unremarkable Impression: Post surgical changes. No acute abnormality
--- NOTE | 2020-08-04 15:47 | Diagnostic Imaging Report ---
Indication: Shortness of breath Technique: One view of the chest Comparison: none Findings: Lungs and pleural spaces are clear. Heart size is normal. Impression: No acute process
--- NOTE | 2020-08-04 19:29 | NUR ---
NURSE HAND-OFF REPORT: Important Events on Shift: Given KCL 40 meqs, IV MagSo4 3 bags, pending last bag; MRI and carotid scan ordered; 2D echo done Patient Status: Stable Diet: Low Na, soft easy chew Pending Orders: N Pending Results/Labs:N Pending MD notification:N Latest Vital Signs: Temperature 97.8 , Pulse 94 , B/P 179 /64 , Respiratory Rate 18 , O2 SAT 96 , Room Air, O2 Flow Rate . Vital Sign Comment: EKG Rhythm: Sinus Rhythm Rhythm change?: N MD Notified?: - MD Response: Latest Acevedo Fall Score: 85 Fall Risk: High Risk Safety Measures: Call light Within Reach, Bed Alarm Zone 1, Side Rails Side Rails x2, Bed position Low and Locked. Fall Precautions: Yellow Socks Yellow Gown Door Sign Patient Fall Education Report given to Kelsey BAKER.
--- NOTE | 2020-08-04 19:30 | NUR ---
NURSE NOTES: Report received from SAMUEL Wang. Patient is awake on bed, alert and oriented x 3, forgetful. lock and dam repairer is in the monitor shows sinus rhythm with no chest pain reported. On room air, saturating 96-97%. On low sodium, soft easy chew instructed and amenable. IV site is on left AC g-20 running 3rd bag of Magnesium (3/4). Patient is ambulatory but needs assistance. Safety measures are in place, bed in lowest and locked position, side rails up x x, call light button and bedside table within reach, instructed to call for any assistance needed, will continue plan of care.
--- NOTE | 2020-08-04 20:00 | NUR ---
NURSE NOTES: Patient is confused, took off her equipment monitor phototypesetting leads and IV site and states that she doesn't need it anymore, re-oriented and explained the purpose/benefits of it, and patient was able to agreed to put it back on. Re-inserted a new IV line on her left hand g-22 that is patent and intact.
[2020-08-04] MEDS: Losartan 25mg tab ORAL SCH (20:14)
--- NOTE | 2020-08-04 21:44 | History and Physical Report ---
DATE OF ADMISSION: 08/03/2020 HISTORY OF PRESENT ILLNESS: The patient is admitted for syncope. The patient does not remember having syncopal episode. Does not remember the events before or after. The patient denies any pain. Denies nausea, vomiting, or diarrhea. Denies chest pain. Denies shortness of breath. Denies cough. Denies fever or chills. Again has no realization of the fall. She is admitted for possible syncope workup. Denies headache. PAST MEDICAL HISTORY: Organic brain syndrome, hypertension. The patient also sustained a scalp hematoma from the fall. Past medical history of GERD. PAST SURGICAL HISTORY: x4, left knee surgery, bilateral hip surgery, appendectomy, and cholecystectomy. FAMILY HISTORY: Noncontributory. SOCIAL HISTORY: She has a history of smoking, history of marijuana. Denies history of drug or alcohol abuse. MEDICATIONS: taking medications. Does not remember the name of the medications. ALLERGIES: No known allergies. REVIEW OF SYSTEMS: HEENT: Denies headaches. RESPIRATORY: Denies shortness of breath. Denies cough. CARDIOVASCULAR: Denies chest pain. GASTROINTESTINAL: Denies nausea, vomiting, or diarrhea. EXTREMITIES: Denies pain. CENTRAL NERVOUS SYSTEM: Denies change in speech pattern. . PHYSICAL EXAMINATION: VITAL SIGNS: Temperature is 97.6, pulse 79, blood pressure 175/77. HEENT: PERRLA. NECK: Supple. No lymphadenopathy. CHEST: Clear to auscultation. CARDIOVASCULAR: Regular rate and rhythm. No murmurs or extra sounds. GASTROINTESTINAL: Soft, nontender, nondistended. No organomegaly. EXTREMITIES: No edema. Moves all four extremities. NEUROLOGIC: Sensory intact to light touch. Reflexes equal on both sides. Has generalized weakness. Dorsalis pedis pulses are present. Oriented x1. LABORATORY DATA: WBC of 7.4, hemoglobin of 15.4, platelets 181. Sodium 140, potassium 3.7, BUN of 16, creatinine of 1, glucose of 115. ASSESSMENT AND PLAN: Syncope, hypertension. I have asked Dr. Oliveira, Dr. Ellison, Dr. Carroll to see the patient for the management of the hypertension as well as for the syncopal workup to see why the patient had syncopal episode. Ali Jory Huerta DR: GLEN JOB#: [id number] CC:
[2020-08-05] VITALS: BP 132/67
--- NOTE | 2020-08-05 00:10 | NUR ---
NURSE NOTES: Patient took off her IV line again and re-inserted a new one on her right hand, secured with kirlix.
[2020-08-05 04:00] VITALS: BP 113/80
--- NOTE | 2020-08-05 07:08 | NUR ---
NURSE HAND-OFF REPORT: Important Events on Shift: Patient has been resting well the whole shift but with several episodes of confusion and always take off her monitor leads and IV. Patient Status: Patient is awake on bed in stable condition. Plan of care endorsed. Diet: Low sodium, soft easy chew Pending Orders: Carotid duplex scan and MRI of the brain with no contrast Pending Results/Labs:AM lab result Pending MD notification:none Latest Vital Signs: Temperature 97.9 , Pulse 112 , B/P 113 /80 , Respiratory Rate 20 , O2 SAT 95 , Room Air, O2 Flow Rate . Vital Sign Comment: stable EKG Rhythm: Sinus Tachycardia Rhythm change?: N MD Notified?: - MD Response: Latest Acevedo Fall Score: 85 Fall Risk: High Risk Safety Measures: Call light Within Reach, Bed Alarm Zone 1, Side Rails Side Rails x2, Bed position Low and Locked. Fall Precautions: Yellow Socks Door Sign Patient Fall Education Report given to SAMUEL Boyle.
--- NOTE | 2020-08-05 07:52 | NUR ---
NURSE NOTES: Received patient report from SAMUEL Schwartz. Patient is awake and able to make needs known. Patient is AO x3 but forgetful. Patient is on room air and shows no signs of respiratory distress or pain at the time. Patient has no IV at the moment. Per cnc machinist 2nd shift, she took off several IVs and refused to have one placed this morning. Bed is in the lowest position, call light is within reach, side rails up x2. Will continue to monitor.
[2020-08-05 08:00] VITALS: BP 123/63
--- NOTE | 2020-08-05 08:35 | NUR ---
NURSE NOTES: Spoke to son Bronwyn Bruce and daughter in law. They gave me some medication names but said the label was unclear because they only had the pictures at hand. Son Bronwyn said he wants to take patient home. Notified Dr. Huerta and Dr. Vernon. Waiting for response.
[2020-08-05 08:58] LABS: BASOPHILS % (AUTO) 0.6 % (0.0-2.0); EOSINOPHILS % (AUTO) 0.8 % (0.0-3.0); HEMATOCRIT 47.1 % (37.0-47.0); HEMOGLOBIN 15.3 G/DL (12.0-16.0); LYMPHOCYTES % (AUTO) 23.9 % (20.0-45.0); MEAN CORPUSCULAR VOLUME 93 FL (80-99); MONOCYTES % (AUTO) 7.1 % (1.0-10.0); NEUTROPHILS % (AUTO) 67.7 % (45.0-75.0); PLATELET COUNT 206 K/UL (150-450); RED BLOOD COUNT 5.07 M/UL (4.20-5.40); RED CELL DISTRIBUTION WIDTH 12.7 % (11.6-14.8); WHITE BLOOD COUNT 7.7 K/UL (4.8-10.8)
--- NOTE | 2020-08-05 09:07 | Neurology Progress Note ---
Objective Physical Exam Last Vital Signs Date Time Temp Pulse Resp B/P (MAP) Pulse Ox O2 Delivery O2 Flow Rate FiO2 08/05/20 08:00 97.5 83 19 123/63 (83) 93 08/04/20 21:00 Room Air Laboratory Tests Test 08/04/20 10:44 08/05/20 08:30 Urine Color Pale yellow Urine Appearance Clear Urine pH 6.5 (4.5-8.0) Urine Specific [place] 1.005 (1.005-1.035) Urine Protein Negative (NEGATIVE) Urine Glucose (UA) Negative (NEGATIVE) Urine Ketones Negative (NEGATIVE) Urine Blood Negative (NEGATIVE) Urine Nitrite Negative (NEGATIVE) Urine Bilirubin Negative (NEGATIVE) Urine Urobilinogen Normal MG/DL (0.0-1.0) Urine Leukocyte Esterase 1+ (NEGATIVE) H Urine RBC 0-2 /HPF (0 - 2) Urine WBC 0-2 /HPF (0 - 2) Urine Squamous Epithelial Cells Occasional /LPF Urine Bacteria Occasional /HPF (NONE) White Blood Count 7.7 K/UL (4.8-10.8) Red Blood Count 5.07 M/UL (4.20-5.40) Hemoglobin 15.3 G/DL (12.0-16.0) Hematocrit 47.1 % (37.0-47.0) H Mean Corpuscular Volume 93 FL (80-99) Mean Corpuscular Hemoglobin 30.2 PG (27.0-31.0) Mean Corpuscular Hemoglobin Concent 32.5 G/DL (32.0-36.0) Red Cell Distribution Width 12.7 % (11.6-14.8) Platelet Count 206 K/UL (150-450) Mean Platelet Volume 7.8 FL (6.5-10.1) Neutrophils (%) (Auto) 67.7 % (45.0-75.0) Lymphocytes (%) (Auto) 23.9 % (20.0-45.0) Monocytes (%) (Auto) 7.1 % (1.0-10.0) Eosinophils (%) (Auto) 0.8 % (0.0-3.0) Basophils (%) (Auto) 0.6 % (0.0-2.0) Sodium Level Pending Potassium Level Pending Chloride Level Pending Carbon Dioxide Level Pending Blood Urea Nitrogen Pending Creatinine Pending Estimat Glomerular Filtration Rate Pending Glucose Level Pending Hemoglobin A1c Pending Uric Acid Pending Calcium Level Pending Phosphorus Level Pending Magnesium Level Pending Total Bilirubin Pending Aspartate Amino Transf (AST/SGOT) Pending Alanine Aminotransferase (ALT/SGPT) Pending Alkaline Phosphatase Pending Troponin I Pending C-Reactive Protein, Quantitative Pending Pro-B-Type Natriuretic Peptide Pending Total Protein Pending Albumin Pending Globulin Pending Triglycerides Level Pending Cholesterol Level Pending LDL Cholesterol Pending HDL Cholesterol Pending Cholesterol/HDL Ratio Pending Vitamin B12 Level Pending Folate Pending Thyroid Stimulating Hormone (TSH) Pending Free Thyroxine Pending Neurologic Exam Objective PE General: pt is laying in bed no distress AXO X4 Neuro: Awake, Alert and Oriented, has insight to situation language is intact Comprehension intact. Cranial nerves II-XII tested, tongue is midline. PERRLA Hearing intact. Motor Exam: Upper and lower bilateral extremities are 4/5 no involuntary movements Sensation intact bilateral in extremities Gait is steady with walker Scalp: small bump on left lateral skull Impression/Recommendations Diagnostic Impression IMAGING: Brain: No acute intracranial hemorrhage or cortical ischemia. Chronic small vessel ischemic changes. Cannot exclude [id number]-rvqbvyz ischemia on CT. Followup as clinically indicated. Ventricles: Unremarkable. Bones/joints: Unremarkable. No acute fracture. Soft tissues: Left scalp hematoma. Sinuses: Unremarkable as visualized. Mastoid air cells: Unremarkable as visualized. IMPRESSION: No acute intracranial hemorrhage or skull fracture. ASSESSMENT AND REC'S: 1. Fall --> unknown etiology at this time --> CT Head is negative, ordered MRI Brain-pt refused --> History of fall last fall last year --> order PT eval to assess balance and coordination --> spoke to son he states she has Dementia and he wants to pick her up and take her home, discussed that MRI can be done outpatient of chosen to do so. 2. Questionable Syncope --> 12 lead ekg NSR, EP on board 2. DM --> acu checks 3. HTN --> elevated upon arrival uncontrolled 4. Hypokalemia --> replete as needed 5. low magnesium --> replete as needed Thank you for allowing us to participate in patient's care plan of care was discussed with Dr. Wai Carroll and he agrees. Sherita Dyson NP Aug 05, 2020 09:07
[2020-08-05] MEDS: Losartan 25mg tab ORAL SCH (09:15)
--- NOTE | 2020-08-05 09:16 | NUR ---
PT NOTE Patient dressed, sitting up in bedside chair, states she is going home, declined to participate with PT at this time. Tamar BAKER notified.
[2020-08-05 09:35] LABS: ALANINE AMINOTRANSFERASE 13 U/L (12-78); ALBUMIN 3.3 G/DL (3.4-5.0); ALKALINE PHOSPHATASE 56 U/L (46-116); ANION GAP 7 mmol/L (5-15); ASPARTATE AMINO TRANSFERASE 16 U/L (15-37); BILIRUBIN,TOTAL 0.5 MG/DL (0.2-1.0); BLOOD UREA NITROGEN 9 mg/dL (7-18); CALCIUM 8.7 MG/DL (8.5-10.1); CARBON DIOXIDE 27 MMOL/L (21-32); CHLORIDE 105 MMOL/L (98-107); CHOLESTEROL 115 MG/DL (< 200); CREATININE 1.1 MG/DL (0.55-1.30); HDL CHOLESTEROL 35 MG/DL (40-60); PHOSPHORUS 2.5 MG/DL (2.5-4.9); POTASSIUM 3.5 MMOL/L (3.5-5.1); SODIUM 139 MMOL/L (136-145); TRIGLYCERIDES 120 MG/DL (30-150)
--- NOTE | 2020-08-05 10:03 | NUR ---
NURSE NOTES: Let Dr. Huerta know that patient wants to go home. Let him know that son Bronwyn also wants to take her home. He gave orders to DC home with home health. TIERNEY Dyson spoke to Bronwyn and he said he does not want patient to go home with home health because he doesn't want nurses going in and out because of COVID. Dr. Huerta is aware.
--- NOTE | 2020-08-05 10:35 | NUR ---
NURSE NOTES: Son Bronwyn said he will coal picker patient at 1400.
[2020-08-05] MEDS ORDERED: METFORMIN HCL500 M1 ORAL (10:41)
[2020-08-05] MEDS ORDERED: ALTACE10 MG ORAL (10:55)
--- NOTE | 2020-08-05 11:39 | NUR ---
NURSE NOTES: Patient refused to finish carotid ultrasound and refused MRI. aware.
[2020-08-05 12:00] VITALS: BP 141/73
--- NOTE | 2020-08-05 12:12 | Nephrology Progress Note ---
Assessment/Plan Problem List: (1) Hypertensive emergency (2) Fall (3) Syncope (4) Electrolyte imbalance Assessment Hypertension [id number] History of diabetes mellitus Syncope Closed head injury, scalp hematoma, hip contusion Low magnesium, low potassium Plan August 05: Abnormal electrolytes improved. Blood pressure stable. Patient refused carotid ultrasound and brain MRI. Patient started on Norvasc for blood pressure We will add Cozaar for blood pressure As needed hydralazine for high blood pressure Monitor renal parameters and electrolytes Magnesium supplement IV, p.o. potassium chloride Per orders Subjective ROS Limited/Unobtainable: No Constitutional: Reports: malaise Objective Objective Last 24 Hour Vital Signs Date Time Temp Pulse Resp B/P (MAP) Pulse Ox O2 Delivery O2 Flow Rate FiO2 08/05/20 12:00 97.9 91 18 141/73 (95) 95 08/05/20 09:15 123/63 08/05/20 09:15 83 123/63 08/05/20 09:00 Room Air 08/05/20 08:00 85 08/05/20 08:00 97.5 83 19 123/63 (83) 93 08/05/20 04:00 97.9 91 20 113/80 (91) 95 08/05/20 04:00 112 08/05/20 00:00 98.1 77 16 132/67 (88) 97 08/05/20 00:00 74 08/04/20 21:00 Room Air 08/04/20 20:14 165/70 08/04/20 20:00 97.9 84 16 133/50 (77) 94 08/04/20 20:00 71 08/04/20 18:10 97.8 94 18 179/64 (102) 96 08/04/20 17:59 95 191/87 08/04/20 16:00 95 08/04/20 16:00 97.8 82 18 191/87 (121) 96 08/04/20 15:51 197/87 08/04/20 12:42 175/77 Intake and Output 08/04/20 08/05/20 19:00 07:00 Intake Total 450 ml 600 ml Balance 450 ml 600 ml Intake Oral 450 ml 600 ml # Voids 3 3 Laboratory Tests 08/05/20 08:30: White Blood Count 7.7, Red Blood Count 5.07, Hemoglobin 15.3, Hematocrit 47.1H, Mean Corpuscular Volume 93, Mean Corpuscular Hemoglobin 30.2, Mean Corpuscular Hemoglobin Concent 32.5, Red Cell Distribution Width 12.7, Platelet Count 206, Mean Platelet Volume 7.8, Neutrophils (%) (Auto) 67.7, Lymphocytes (%) (Auto) 23.9, Monocytes (%) (Auto) 7.1, Eosinophils (%) (Auto) 0.8, Basophils (%) (Auto) 0.6, Sodium Level 139, Potassium Level 3.5, Chloride Level 105, Carbon Dioxide Level 27, Anion Gap 7, Blood Urea Nitrogen 9, Creatinine 1.1, Estimat Glomerular Filtration Rate 47.1, Glucose Level 190H, Hemoglobin A1c 5.6, Uric Acid 5.2, Calcium Level 8.7, Phosphorus Level 2.5, Magnesium Level 2.3, Total Bilirubin 0.5, Aspartate Amino Transf (AST/SGOT) 16, Alanine Aminotransferase (ALT/SGPT) 13, Alkaline Phosphatase 56, Troponin I 0.000, C-Reactive Protein, Quantitative < 0.4, Pro-B-Type Natriuretic Peptide 349H, Total Protein 6.5, Albumin 3.3L, Globulin 3.2, Albumin/Globulin Ratio 1.0, Triglycerides Level 120, Cholesterol Level 115, LDL Cholesterol 65, HDL Cholesterol 35L, Cholesterol/HDL Ratio 3.3, Vitamin B12 Level 388, Folate 18.4, Thyroid Stimulating Hormone (TSH) 3.012, Free Thyroxine 1.01 Height (Feet): 5 Height (Inches): 2.00 Weight (Pounds): 162 General Appearance: no apparent distress Cardiovascular: tachycardia Respiratory/Chest: decreased breath sounds Abdomen: soft Tom Oliveira MD Aug 05, 2020 12:12
--- NOTE | 2020-08-05 12:22 | NUR ---
*-*DISCHARGE PLANNING*-* PATIENT HAS BEEN REFERRED TO : [facility] P: [phone] S/W JODI, WILL CALL BACK AFTER REVIEW.
--- NOTE | 2020-08-05 14:03 | NUR ---
NURSE NOTES: Patient went home with son Bronwyn Joaquin. Telemetry box off patient and IV taken off as well. Belongings list reviewed with patient and with caregiver. Patient shows no signs of distress or pain at the time.
--- NOTE | 2020-08-05 14:08 | Cardiac Electrophysiology PN ---
Assessment/Plan Assessment/Plan 1. Recurrent syncopal episodes. This happened while the patient was not exerting herself. Could be sick sinus syndrome. Neuro evaluation is in progress. ECho Nl EF and no arrhythmias overnight 2. Accelerated hypertension. Patient is on losartan 25 mg b.i.d. as well as amlodipine 5 mg b.i.d. DAVID RN Patient and son refusing further cardiac/Neuro eval. Subjective Subjective Alert in NAD. No CP or SOB. Wants to go home. Objective Last 24 Hour Vital Signs Date Time Temp Pulse Resp B/P (MAP) Pulse Ox O2 Delivery O2 Flow Rate FiO2 08/05/20 12:00 97.9 91 18 141/73 (95) 95 08/05/20 09:15 123/63 08/05/20 09:15 83 123/63 08/05/20 09:00 Room Air 08/05/20 08:00 85 08/05/20 08:00 97.5 83 19 123/63 (83) 93 08/05/20 04:00 97.9 91 20 113/80 (91) 95 08/05/20 04:00 112 08/05/20 00:00 98.1 77 16 132/67 (88) 97 08/05/20 00:00 74 08/04/20 21:00 Room Air 08/04/20 20:14 165/70 08/04/20 20:00 97.9 84 16 133/50 (77) 94 08/04/20 20:00 71 08/04/20 18:10 97.8 94 18 179/64 (102) 96 08/04/20 17:59 95 191/87 08/04/20 16:00 95 08/04/20 16:00 97.8 82 18 191/87 (121) 96 08/04/20 15:51 197/87 Intake and Output 08/04/20 08/05/20 19:00 07:00 Intake Total 450 ml 600 ml Balance 450 ml 600 ml Intake Oral 450 ml 600 ml # Voids 3 3 Laboratory Tests Test 08/05/20 08:30 White Blood Count 7.7 K/UL (4.8-10.8) Red Blood Count 5.07 M/UL (4.20-5.40) Hemoglobin 15.3 G/DL (12.0-16.0) Hematocrit 47.1 % (37.0-47.0) H Mean Corpuscular Volume 93 FL (80-99) Mean Corpuscular Hemoglobin 30.2 PG (27.0-31.0) Mean Corpuscular Hemoglobin Concent 32.5 G/DL (32.0-36.0) Red Cell Distribution Width 12.7 % (11.6-14.8) Platelet Count 206 K/UL (150-450) Mean Platelet Volume 7.8 FL (6.5-10.1) Neutrophils (%) (Auto) 67.7 % (45.0-75.0) Lymphocytes (%) (Auto) 23.9 % (20.0-45.0) Monocytes (%) (Auto) 7.1 % (1.0-10.0) Eosinophils (%) (Auto) 0.8 % (0.0-3.0) Basophils (%) (Auto) 0.6 % (0.0-2.0) Sodium Level 139 MMOL/L (136-145) Potassium Level 3.5 MMOL/L (3.5-5.1) Chloride Level 105 MMOL/L (98-107) Carbon Dioxide Level 27 MMOL/L (21-32) Anion Gap 7 mmol/L (5-15) Blood Urea Nitrogen 9 mg/dL (7-18) Creatinine 1.1 MG/DL (0.55-1.30) Estimat Glomerular Filtration Rate 47.1 mL/min (>60) Glucose Level 190 MG/DL (74-106) H Hemoglobin A1c 5.6 % (4.3-6.0) Uric Acid 5.2 MG/DL (2.6-7.2) Calcium Level 8.7 MG/DL (8.5-10.1) Phosphorus Level 2.5 MG/DL (2.5-4.9) Magnesium Level 2.3 MG/DL (1.8-2.4) Total Bilirubin 0.5 MG/DL (0.2-1.0) Aspartate Amino Transf (AST/SGOT) 16 U/L (15-37) Alanine Aminotransferase (ALT/SGPT) 13 U/L (12-78) Alkaline Phosphatase 56 U/L (46-116) Troponin I 0.000 ng/mL (0.000-0.056) C-Reactive Protein, Quantitative < 0.4 mg/dL (0.00-0.90) Pro-B-Type Natriuretic Peptide 349 pg/mL (0-125) H Total Protein 6.5 G/DL (6.4-8.2) Albumin 3.3 G/DL (3.4-5.0) L Globulin 3.2 g/dL Albumin/Globulin Ratio 1.0 (1.0-2.7) Triglycerides Level 120 MG/DL (30-150) Cholesterol Level 115 MG/DL (< 200) LDL Cholesterol 65 mg/dL (<100) HDL Cholesterol 35 MG/DL (40-60) L Cholesterol/HDL Ratio 3.3 (3.3-4.4) Vitamin B12 Level 388 PG/ML (193-986) Folate 18.4 NG/ML (8.6-58.9) Thyroid Stimulating Hormone (TSH) 3.012 uiU/mL (0.358-3.740) Free Thyroxine 1.01 NG/DL (0.76-1.46) Objective HEAD AND NECK: Showed no JVD. LUNGS: Clear. CARDIOVASCULAR: Shows regular S1 and S2 with no gallop or murmur. ABDOMEN: Soft. EXTREMITIES: No pitting edema. Carlos Ellison MD Aug 05, 2020 14:08
--- NOTE | 2020-08-05 15:22 | Diagnostic Imaging Report ---
Indication: Reason For Exam: SYNCOPE Technique: Syncope, history of trauma Comparison: none Findings: On the right, grayscale and duplex images demonstrate osteoporotic plaquing resulting in less than 50% diameter narrowing. Normal Doppler flow velocities and waveforms. On the left, grayscale and duplex images demonstrate a chronic plaquing. At the proximal internal carotid artery on the left, flow velocities are elevated, peak systolic velocity 161 cm/s. Waveforms are normal. 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 Velocity criteria are extrapolated from diameter data as defined by the Society of radiologists in ultrasound consensus conference. Radiology 2003:229; 340-346
--- NOTE | 2020-08-05 16:03 | NUR ---
*-*DISCHARGE PLAN*-* PATIENT HAS BEEN ACCEPTED WITH: P: [phone] S/W [facility].
--- NOTE | 2020-08-06 14:56 | Cardiology Report ---
APPROVED REPORT EXAM: Two-dimensional and M-mode echocardiogram with Doppler and color Doppler. INDICATION Syncope M-Mode DIMENSIONS IVSd1.1 (0.7-1.1cm)Left Atrium (MM)4.0 (1.6-4.0cm) LVDd4.6 (3.5-5.6cm)Aortic Root2.3 (2.0-3.7cm) PWd0.9 (0.7-1.1cm)Aortic Cusp Exc.2.0 (1.5-2.0cm) IVSs1.5 cmEPSS0.5 (>1.0cm) LVDs3.2 (2.5-4.0cm) PWs1.4 cm <Conclusion> Normal left ventricular chamber size, systolic function and wall motion. Left ventricular ejection fraction estimated to be 65 %. No evidence of left ventricular hypertrophy. Anterior Echo-free space, may be due to pericardial fat or effusion. All other cardiac chamber sizes are within normal limits. Focal aortic valve sclerosis with adequate cusp excursion. Mildly thickened mitral valve leaflets with normal excursion. Mild mitral annulus and aortic root calcification. Pulmonic valve not well visualized. Normal tricuspid valve structure. IVC is normal in size with physiological collapse. A color flow and spectral Doppler study was performed and revealed: No aortic regurgitation. Trace mitral regurgitation. Mitral diastolic velocities suggest mild left ventricular diastolic dysfunction (Grade I). Trace tricuspid regurgitation. Tricuspid systolic velocities suggests peak right ventricular systolic pressure of 27 mmHg.
--- NOTE | 2020-08-06 15:07 | Cardiology Report ---
APPROVED REPORT EKG Measurement Heart [id number] <Conclusion> Normal sinus rhythm with sinus arrhythmia Normal ECG
--- NOTE | 2020-08-06 15:23 | Cardiology Report ---
APPROVED REPORT EKG Measurement Heart [id number] <Conclusion> Normal sinus rhythm with sinus arrhythmia Normal ECG
--- NOTE | 2020-08-08 11:03 | Discharge Summary ---
Discharge Summary Discharge Summary _ Date of admission: 08/03/2020 Date of discharge: 08/05/[address] Huerta History of Present Illness and Brief Hospital Course Ms. Bruce is an 84-year-old female with past medical history of hypertension, who presented to the ED after a fall. The patient was walking down the street when she suddenly lost consciousness after turning her head to look up at a building. She fell on the left side. She complained of left hip pain and a bump over the left side of scalp. She had no recollection of the events immediately before or after her fall. Of note, she had bilateral hip replacement surgical history. Her EKG was nonischemic and largely unremarkable. Chest x-ray showed normal cardiac silhouette. X-ray of the hip and pelvis showed intact hardware without obvious fracture or dislocation. CT scan of the head was unremarkable for acute injury. She also had a history of fall last year. An MRI of the brain and carotid ultrasound were ordered but patient refused. Patient had dementia and her son requested to pick her up and take her home. Patient's son refused further cardiac and neuro evaluation. After discussion, patient's son agreed to MRI of the brain as an outpatient. Patient's magnesium and potassium were low on admission. They were replaced. Patient was found to be ambulatory. Patient was medically stable for discharge and was discharged home on 08/05/2020. Consultants: Cardiology Dr. Ellison Nephrology Dr. Stoo Neurology Sherita Dyson NP Discharge Condition Stable Final diagnoses Recurrent syncopal episodes Accelerated hypertension Hypertensive emergency Fall Electrolyte imbalance Hypokalemia Hypomagnesemia Diabetes mellitus I have been assigned to dictate discharge summary for this account. I was not involved in the patient's management Yusuf Joyner Aug 08, 2020 11:03
== END 2020-08-05 14:11 | disposition home or self-care (01) | DRG 305 ==
LOC: EMR 17:15 → 2E 18:16 → EDBEDREQ 18:45
DX: I16.1 Hypertensive emergency (principal); S00.03XA Contusion of scalp, initial encounter; S70.01XA Contusion of right hip, initial encounter; R55 Syncope and collapse; Z96.643 Presence of artificial hip joint, bilateral; F09 Unspecified mental disorder due to known physiological condition; I10 Essential (primary) hypertension; K21.9 Gastro-esophageal reflux disease without esophagitis; W19.XXXA Unspecified fall, initial encounter; Y92.480 Sidewalk as the place of occurrence of the external cause; Z90.49 Acquired absence of other specified parts of digestive tract; E87.6 Hypokalemia; E83.42 Hypomagnesemia; E11.9 Type 2 diabetes mellitus without complications
CPT/HCPCS: 36415; 70450; 71045; 73502; 80053; 80061; 81001; 82607; 82746; 83036; 83735; 83880; 84100; 84439; 84443; 84484; 84550; 85025; 86140; 93005; 93306; 93880; 99285; J8499